=== PATIENT | female | born 1950 | race Caucasian/White ===

== ENCOUNTER → 2016-08-24 | Outpatient (CLI) | payer BC, OTHER ==
--- NOTE | 2016-08-24 17:24 | RAD ---
Right lower extremity venous duplex study 08/24/2016 Clinical History: Right calf pain. Technique: Using a combination of real time ultrasound imaging and color-flow and pulse Doppler imaging techniques along with graded compression and augmentation, duplex evaluation of the deep venous system of the right lower extremity was performed. Multiple images were obtained. Findings: There is no sonographic evidence of deep venous thrombosis involving the visualized deep venous structures of the right lower extremity. Impression: Negative study.
== END | disposition home or self-care (01) ==
LOC: US 16:54
PROVIDERS: ATTEND Nurse Practitioner Family
DX: M79.604 Pain in right leg (principal); M79.89 Other specified soft tissue disorders
CPT/HCPCS: 93971

== ENCOUNTER 2018-10-08 19:23 | Emergency (ER) | payer MEDICARE, OTHER ==
[~2018-10-08] VITALS: Ht 165.1 cm; Wt 99.8 kg
[2018-10-08] MEDS ORDERED: ATOR40TA59 PO (20:01)
[2018-10-08] MEDS ORDERED: OMEP20TA8 PO (20:01)
[2018-10-08] MEDS ORDERED: ASPI81TA50 PO (20:01)
[2018-10-08] MEDS ORDERED: ANAS1TAB PO (20:01)
[2018-10-08] MEDS ORDERED: CHOL100013 PO (20:01)
[2018-10-08 20:04] LABS: BASO # 0.1 x10^3/uL (0.0-0.2); BASO % 1 % (0-3); EOS # 0.1 x10^3/uL (0.0-0.7); EOS % 1 % (0-3); HEMATOCRIT 44.5 % (36.0-47.0); HEMOGLOBIN 14.9 g/dL (12.0-15.5); LYMPH # 1.6 x10^3/uL (1.0-4.8); LYMPH % 17 % (24-48); MEAN CORPUSCULAR HEMOGLOBIN 30 pg (25-35); MEAN CORPUSCULAR HGB CONC 33 g/dL (31-37); MEAN CORPUSCULAR VOLUME 88 fL (79-100); MONO # 0.6 x10^3/uL (0.0-1.1); MONO % 6 % (0-9); NEUT # 6.9 x10^3uL (1.8-7.7); NEUT % 74 % (31-73); PLATELET COUNT 262 x10^3/uL (140-400); RED BLOOD COUNT 5.04 x10^6/uL (3.50-5.40); RED CELL DISTRIBUTION WIDTH 13.8 % (11.5-14.5); WHITE BLOOD COUNT 9.3 x10^3/uL (4.0-11.0)
[2018-10-08 20:11] LABS: CREATININE 1.2 mg/dL (0.6-1.0); GFR 44.9; POTASSIUM 3.7 mmol/L (3.5-5.1)
[2018-10-08] MEDS ORDERED: ONDANSETRON PF 4 MG/2 ML VIAL. IV ONE (20:15)
[2018-10-08] MEDS ORDERED: MORPHINE SULFATE 10 MG/ML VIAL. IM ONE (20:15)
[2018-10-08] MEDS ORDERED: FAMOTIDINE 20 MG/2 ML VIAL IVP ONE (20:15)
[2018-10-08 20:19] LABS: ALBUMIN 3.8 g/dL (3.4-5.0); ALBUMIN/GLOBULIN RATIO 0.8 (1.0-1.7); TOTAL BILIRUBIN 0.5 mg/dL (0.2-1.0); TOTAL PROTEIN 8.4 g/dL (6.4-8.2)
[2018-10-08] MEDS ORDERED: PANTOPRAZOLE SODIUM IV DRIP 80 MG in IV NORMAL SALINE 100ML 100 ML IV ONE (21:15)
--- NOTE | 2018-10-08 22:27 | RAD ---
Single view chest 10/08/2018 CLINICAL INDICATION: Shortness of air. COMPARISON: None. FINDINGS: Left axillary surgical clips. No pleural effusion, pneumothorax or focal consolidation. Cardiac and mediastinal silhouettes are unremarkable. IMPRESSION: No acute cardiopulmonary abnormality. Electronically signed by: Hany Santos MD (10/08/2018 10:24 PM) [facility]
[2018-10-08] MEDS ORDERED: IV RINGERS,LACTATED 1000ML 1,000 ML IV SCH (22:30)
[2018-10-08] MEDS ORDERED: PROPOFOL 20 ML IV ONE (22:32)
--- NOTE | 2018-10-08 22:51 | PHYS DOC ---
Past Medical History Past Medical History: Cancer, DVT, GERD, High Cholesterol, Renal Disease, Other Additional Past Medical Histor: BREAST CANCER, VERTIGO Past Surgical History: Cholecystectomy, Tubal ligation Additional Past Surgical Histo: LEFT LUMPECTOMY Alcohol Use: None Drug Use: None Adult General Chief Complaint Chief Complaint: DIFFICULTY SWALLOWING HPI HPI Patient is a 68 year old female who presents with difficulty swallowing and inability to keep food or liquids down for the past several hours. Patient states she last ate breakfast but was unable to drink fluids and lunchtime. She reports diffuse lower chest, upper abdominal pain. States she has history of dysphagia with esophageal spasm. Esophageal spasm usually releases after an hour or so, prompting patient to wait at home. Patient is able to maintain, swallow secretions. Denies shortness of breath, cough, choking or aspirating episode. Patient did speak with her GI physician, Dr. Medina who instructed her to come to the emergency department. [] Review of Systems Review of Systems ROS as per HPI All other systems were reviewed and found to be within normal limits, except as documented in this note. Current Medications Current Medications Current Medications Medications (Trade) Dose Ordered Sig/Toi Start Time Stop Time Status Last Admin Dose Admin Famotidine (Pepcid Vial) 20 mg 1X ONCE 10/08/18 20:15 10/08/18 20:16 DC 10/08/18 20:14 20 MG Morphine Sulfate (Morphine Sulfate) 5 mg 1X ONCE 10/08/18 20:15 10/08/18 20:16 DC 10/08/18 20:15 5 MG Ondansetron HCl (Zofran) 4 mg 1X ONCE 10/08/18 20:15 10/08/18 20:16 DC 10/08/18 20:14 4 MG Pantoprazole Sodium 80 mg/ Sodium Chloride 100 ml @ 10 mls/hr 1X ONCE 10/08/18 21:15 10/08/18 23:51 DC 10/08/18 21:16 10 MLS/HR Propofol 20 ml @ As Directed STK-MED ONCE 10/08/18 22:32 10/08/18 22:33 DC Ringer's Solution 1,000 ml @ 50 mls/hr Q20H 10/08/18 22:30 10/08/18 23:51 DC Allergies Allergies Allergies Coded Allergies Type Severity Reaction Last Updated Verified Penicillins Allergy Intermediate HIVES 10/08/18 Yes metronidazole Allergy Intermediate HIVES 10/08/18 Yes Physical Exam Physical Exam Constitutional: Well developed, well nourished, no acute distress, non-toxic appearance. [] HENT: Normocephalic, atraumatic, bilateral external ears normal, oropharynx moist, no oral exudates, nose normal. [] Eyes: PERRLA, EOMI, conjunctiva normal, no discharge. [] Neck: Normal range of motion. [] Cardiovascular:Heart rate regular rhythm, no murmur. [] Lungs & Thorax: Bilateral breath sounds clear to auscultation. [] Abdomen: Bowel sounds normal, soft, epigastric discomfort. No rebound or rigidity [] Skin: Warm, dry, no erythema, no rash. [] Back: No tenderness, no CVA tenderness. [] Extremities: No tenderness, no edema. [] Neurologic: Alert and oriented X 3, normal motor function, normal sensory function, no focal deficits noted. [] Psychologic: Affect normal, judgement normal, mood normal. [] Current Patient Data Vital Signs Vital Signs Date Time Temp Pulse Resp B/P (MAP) Pulse Ox O2 Delivery O2 Flow Rate FiO2 10/08/18 23:21 67 20 122/57 95 Room Air 10/08/18 23:05 98.7 98.7 Lab Values Laboratory Tests Test 10/08/18 19:50 White Blood Count 9.3 x10^3/uL (4.0-11.0) Red Blood Count 5.04 x10^6/uL (3.50-5.40) Hemoglobin 14.9 g/dL (12.0-15.5) Hematocrit 44.5 % (36.0-47.0) Mean Corpuscular Volume 88 fL (79-100) Mean Corpuscular Hemoglobin 30 pg (25-35) Mean Corpuscular Hemoglobin Concent 33 g/dL (31-37) Red Cell Distribution Width 13.8 % (11.5-14.5) Platelet Count 262 x10^3/uL (140-400) Neutrophils (%) (Auto) 74 % (31-73) H Lymphocytes (%) (Auto) 17 % (24-48) L Monocytes (%) (Auto) 6 % (0-9) Eosinophils (%) (Auto) 1 % (0-3) Basophils (%) (Auto) 1 % (0-3) Neutrophils # (Auto) 6.9 x10^3uL (1.8-7.7) Lymphocytes # (Auto) 1.6 x10^3/uL (1.0-4.8) Monocytes # (Auto) 0.6 x10^3/uL (0.0-1.1) Eosinophils # (Auto) 0.1 x10^3/uL (0.0-0.7) Basophils # (Auto) 0.1 x10^3/uL (0.0-0.2) Sodium Level 141 mmol/L (136-145) Potassium Level 3.7 mmol/L (3.5-5.1) Chloride Level 102 mmol/L (98-107) Carbon Dioxide Level 27 mmol/L (21-32) Anion Gap 12 (6-14) Blood Urea Nitrogen 18 mg/dL (7-20) Creatinine 1.2 mg/dL (0.6-1.0) H Estimated GFR (Cockcroft-Gault) 44.9 BUN/Creatinine Ratio 15 (6-20) Glucose Level 110 mg/dL (70-99) H Calcium Level 10.0 mg/dL (8.5-10.1) Total Bilirubin 0.5 mg/dL (0.2-1.0) Aspartate Amino Transferase (AST) 19 U/L (15-37) Alanine Aminotransferase (ALT) 25 U/L (14-59) Alkaline Phosphatase 105 U/L (46-116) Troponin I Quantitative < 0.017 ng/mL (0.000-0.055) Total Protein 8.4 g/dL (6.4-8.2) H Albumin 3.8 g/dL (3.4-5.0) Albumin/Globulin Ratio 0.8 (1.0-1.7) L Lipase 109 U/L (73-393) Laboratory Tests 10/08/18 19:50 Laboratory Tests 10/08/18 19:50 EKG EKG [] Radiology/Procedures Radiology/Procedures [XR chest: No acute cardiopulmonary disease on preliminary ED review] Course & Med Decision Making Course & Med Decision Making Pertinent Labs and Imaging studies reviewed. (See chart for details) [Patient unable to tolerate oral fluids in the emergency department. Basic labs , chest x-ray reviewed. Dr. Ferreira consult request the patient taken to the GI lab for endoscopy.] Magda Disclaimer Dragon Disclaimer This electronic medical record was generated, in whole or in part, using a voice recognition dictation system. Departure Departure Impression: Primary Impression: Dysphagia Disposition: 01 HOME, SELF-CARE Condition: LEFT WITHOUT BEING SEEN Referrals: PHILIPP DE PAZ (PCP) AZAR MYLES DO Oct 08, 2018 22:51
[2018-10-08 23:21] VITALS: BP 122/57
--- NOTE | 2018-10-09 12:30 | EKG ---
[facility] [address] [place] [address] Test Date: 2018-10-08 Test Time: 19:49:36 Pat Name: SLOANE FREY Department: Room: Gender: Female Health Inspector: : 1950 Requested By: AZAR MYLES Order Number: [id number] Reading MD: Vernon Sanchez MD Measurements Intervals [place] Rate: 77 P: 41 PA: 166 QRS: -19 QRSD: 74 T: 51 QT: 384 QTc: 436 Interpretive Statements SINUS RHYTHM Electronically Signed On 10-14-2018 14:45:51 CDT by Vernon Sanchez MD
--- NOTE | 2018-10-09 19:04 | CONS ---
DATE OF CONSULTATION: 10/08/2018 REFERRING PHYSICIAN: Dr. Cruz, ER REASONS: Dysphagia, possible meat impaction. HISTORY OF PRESENT ILLNESS: This is a 68-year-old female with past medical history significant for hyperlipidemia, vertigo, history of esophageal stricture status post dilatation as well as breast cancer status post chemotherapy and radiation therapy in the left chest, is seen with acute onset of food being stuck as well as inability to handle oral secretions after eating some chicken earlier today. The patient states she feels it sticks in the lower chest, unable to handle oral secretions or liquids since, has come to the Emergency Room after discussion with myself for evaluation and possible upper endoscopy, dilatation and foreign body removal and dilatation. She denies any bleeding. Denies any change in weight. States normally when she has an episode, it passes on its own. PAST MEDICAL HISTORY: Hyperlipidemia, vertigo, breast cancer, esophageal stricture, status post dilatation. PAST SURGICAL HISTORY: Tubal ligation, cholecystectomy, esophageal dilatation and left lumpectomy. ALLERGIES: PENICILLIN AND FLAGYL. MEDICATIONS: Atorvastatin, omeprazole, Arimidex. SOCIAL HISTORY: She lives with her spouse. Nonsmoker, nondrinker. FAMILY HISTORY: Significant for breast cancer in a sister. There is also history of esophageal strictures. REVIEW OF SYSTEMS: Per records. PHYSICAL EXAMINATION: GENERAL: Reveals a well-nourished, well-developed female who is alert and cooperative, in no acute distress. VITAL SIGNS: Pulse 90, respirations 15. HEENT: Normocephalic and atraumatic head. Pupils and extraocular muscles are not tested. Sclerae anicteric. NECK: Supple without crepitus. LUNGS: Clear anteriorly. CARDIOVASCULAR: Reveals S1, S2 without S3, S4 or appreciable murmur. ABDOMEN: Reveals soft abdomen, normal bowel sounds without appreciable hepatosplenomegaly. EXTREMITIES: Reveals no cyanosis, clubbing or edema. IMPRESSION: Dysphagia with history of esophageal strictures, reflux as well as left chest radiation for breast cancer. Differential includes oropharyngeal disease, meat impaction secondary to stricture, Rome's, Schatzki ring, eosinophilic esophagitis, achalasia and/or malignancy, presbyesophagus. Upper endoscopy is unrevealing for any of the above. No obstruction was encountered and further neurologic workup for possible brainstem cerebrovascular accident, LS, multiple sclerosis, Parkinson disease and myasthenia gravis would be pursued. Risks and benefits of procedure including risk of hemorrhage and perforation discussed with the patient and is willing to proceed. Anesthesia is present. IDA BLAND MD DR: KAYLA/abraham JOB#: [id number] / [id number]
== END 2018-10-08 23:50 | disposition home or self-care (01) ==
LOC: ER 19:23
DX: R13.10 Dysphagia, unspecified (principal); K21.9 Gastro-esophageal reflux disease without esophagitis; E78.00 Pure hypercholesterolemia, unspecified; Z86.73 Personal history of transient ischemic attack (TIA), and cerebral infarction without residual deficits; Z87.448 Personal history of other diseases of urinary system; Z88.0 Allergy status to penicillin; Z88.8 Allergy status to other drugs, medicaments and biological substances
CPT/HCPCS: 36415; 43247; 71045; 80053; 83690; 84484; 85025; 93005; 96365; 96372; 96375; 99285; C9113; J2270; J2405; J2704; J3490

== ENCOUNTER → 2018-10-28 | Day surgery (SDC) | payer MEDICARE, OTHER ==
[~2018-10-28] MED LIST: ANAS1TAB PO; ASPI81TA50 PO; ATOR40TA59 PO; CHOL100013 PO; IV RINGERS,LACTATED 1000ML 1,000 ML IV SCH; LIDOCAINE 1% PF 2 ML VIAL. ID PRN; MIDAZOLAM HCL/PF 2 MG/2 ML VIAL. IV PRN; OMEP20TA8 PO; PROPOFOL 40 ML IV ONE; fentaNYL PF VIAL 100 MCG/2 ML VIAL IV PRN
[2018-10-28 10:26] VITALS: BP 123/69
--- NOTE | 2018-10-28 21:29 | HP ---
ADMIT DATE: 10/28/2018 REFERRING PHYSICIAN: Dr. Wilmer Hernandez. HISTORY OF PRESENT ILLNESS: This is a 68-year-old female, whose past medical history is significant for colon polyps, hyperlipidemia, eosinophilic esophagitis, dysphagia, history of breast cancer, is seen with recurrent dysphagia to solids, mainly stuck in the substernal location. Weight and appetite are stable. She does take omeprazole 20 mg daily with the dysphagia and reflux nicotine and caffeine and also is here today for surveillance colonoscopy. Bowel habits are regular without diarrhea or constipation. DICTATION ENDS HERE IDA BLAND MD DR: KAYLA/nts JOB#: [id number] / [id number]
--- NOTE | 2018-10-29 04:42 | HP ---
ADMIT DATE: 10/28/2018 REFERRING PHYSICIAN: KASEY Vega. REASON: History of colonic polyps, eosinophilic esophagitis with recurrent dysphagia. HISTORY OF PRESENT ILLNESS: A 68-year-old female with the above history is seen for intermittent dilatation. She had recurrent dysphagia for solids mainly substernal location. She does take omeprazole for reflux symptoms. Avoid alcohol, nicotine and caffeine. Weight and appetite are stable. There has been no bleeding, diarrhea, constipation. Surveillance colonoscopy was recommended with history of colonic polyps as well. PAST MEDICAL HISTORY: Eosinophilic esophagitis, colonic polyps, hyperlipidemia, breast cancer. ALLERGIES: PENICILLIN AND METRONIDAZOLE. MEDICATIONS: Include aspirin, atorvastatin, vitamin D, omeprazole, and anastrozole. FAMILY AND SOCIAL HISTORY: There is a strong family history of diabetes and also hypertension. PAST SURGICAL HISTORY: Status post tubal ligation, cholecystectomy, breast surgery and gallbladder surgery for breast cancer. REVIEW OF SYSTEMS: Per records. PHYSICAL EXAMINATION: GENERAL: Reveals a well-nourished, well-developed female, who is alert and cooperative in no acute distress. LUNGS: Clear. CARDIOVASCULAR: Reveals S1, S2 without S3, S4 or appreciable murmur. ABDOMEN: Reveals soft abdomen, normal bowel sounds, without appreciable hepatosplenomegaly. EXTREMITIES: Reveals no cyanosis, clubbing or edema. IMPRESSION: 1. Dysphagia with eosinophilic esophagitis. Interval biopsy and dilatation may be warranted depending upon endoscopic findings. Risks and benefits have been discussed with the patient who is willing to proceed at this time. 2. Colonic polyps. Surveillance exam was recommended. Risks and benefits of procedure including risk of hemorrhage and perforation during the operation have been discussed and she is willing to proceed. IDA BLAND MD DR: KAYLA/abraham JOB#: [id number] / [id number]
== END | disposition home or self-care (01) ==
LOC: ENDOS 09:06
PROVIDERS: ATTEND Internal Medicine Gastroenterology
DX: Z12.11 Encounter for screening for malignant neoplasm of colon (principal); K64.0 First degree hemorrhoids; K20.0 Eosinophilic esophagitis; K29.50 Unspecified chronic gastritis without bleeding; Z86.010 Personal history of colon polyps; Z88.3 Allergy status to other anti-infective agents; Z88.0 Allergy status to penicillin; E78.00 Pure hypercholesterolemia, unspecified; Z85.3 Personal history of malignant neoplasm of breast; Z85.828 Personal history of other malignant neoplasm of skin; Z82.3 Family history of stroke; Z83.3 Family history of diabetes mellitus; Z82.49 Family history of ischemic heart disease and other diseases of the circulatory system; Z79.899 Other long term (current) drug therapy; Z79.82 Long term (current) use of aspirin; Z90.49 Acquired absence of other specified parts of digestive tract; Z98.51 Tubal ligation status; Z98.890 Other specified postprocedural states
CPT/HCPCS: 43235; 43450; G0105; J2704; 45378